=== PATIENT | female | born 2000 | race Two or more races ===

== ENCOUNTER 2021-10-31 15:43 | Outpatient (CLI) | payer OTHER | END 2021-10-31 17:17 | disposition home or self-care (01) | LOC: PRENATAL 15:43 | PROVIDERS: ATTEND Obstetrics & Gynecology Maternal & Fetal Medicine | DX: O35.0XX0 Maternal care for (suspected) central nervous system malformation in fetus, not applicable or unspecified (principal); O35.3XX0 Maternal care for (suspected) damage to fetus from viral disease in mother, not applicable or unspecified; O99.891 Other specified diseases and conditions complicating pregnancy; Z3A.22 22 weeks gestation of pregnancy; Z88.0 Allergy status to penicillin ==

== ENCOUNTER 2021-11-26 14:02 | Outpatient (CLI) | payer OTHER ==
[2021-11-26] MEDS ORDERED: PRENATAL CAPLE1 EAC1 (14:13)
[2021-11-26] MEDS ORDERED: PYRIDIUM200 MG PO (16:47)
[2021-11-26] MEDS ORDERED: MACROBID 100 M100 MG PO (16:47)
== END 2021-11-26 23:02 | disposition home or self-care (01) ==
LOC: OBS/DEL 14:02
PROVIDERS: ATTEND Obstetrics & Gynecology
DX: O23.42 Unspecified infection of urinary tract in pregnancy, second trimester (principal); N39.0 Urinary tract infection, site not specified; Z3A.25 25 weeks gestation of pregnancy; Z88.0 Allergy status to penicillin

== ENCOUNTER 2021-12-22 11:45 | Outpatient (CLI) | payer OTHER ==
[~2021-12-22 11:45] MED LIST: MACROBID 100 M100 MG PO; PRENATAL CAPLE1 EAC1; PYRIDIUM200 MG PO
== END 2021-12-22 12:00 | disposition home or self-care (01) ==
LOC: NST 11:45
PROVIDERS: ATTEND Obstetrics & Gynecology
DX: Z34.83 Encounter for supervision of other normal pregnancy, third trimester (principal)

== ENCOUNTER 2022-01-16 06:06 | Outpatient (CLI) | payer OTHER | END 2022-01-16 18:35 | disposition home or self-care (01) | LOC: OBS/DEL 06:06 | PROVIDERS: ATTEND Obstetrics & Gynecology | DX: O47.03 False labor before 37 completed weeks of gestation, third trimester (principal); Z3A.33 33 weeks gestation of pregnancy ==

== ENCOUNTER → 2022-02-23 | Outpatient (CLI) | payer OTHER | END | disposition home or self-care (01) | LOC: NST 22:03 | PROVIDERS: ATTEND Obstetrics & Gynecology | DX: Z34.83 Encounter for supervision of other normal pregnancy, third trimester (principal) ==

== ENCOUNTER 2022-02-28 07:22 | Inpatient (IN) | payer OTHER ==
[~2022-02-28] VITALS: Ht 162.6 cm; Wt 68.9 kg
== END 2022-03-02 14:30 | disposition home or self-care (01) | DRG 807 ==
LOC: OB/GYN 07:22 → LDR 07:22 → OB/GYN 22:08 → O/R 03-01 12:13 → OB/GYN 03-01 12:14
PROVIDERS: ADMIT Obstetrics & Gynecology; ATTEND Obstetrics & Gynecology
PROC: 10E0XZZ Delivery of Products of Conception, External Approach (ICD-10-PCS; principal; 2022-02-28)
PROC: 0UQG7ZZ Repair Vagina, Via Natural or Artificial Opening (ICD-10-PCS; 2022-02-28)
PROC: 4A1HXCZ Monitoring of Products of Conception, Cardiac Rate, External Approach (ICD-10-PCS; 2022-02-28)
DX: O71.4 Obstetric high vaginal laceration alone (principal); Z37.0 Single live birth; Z3A.39 39 weeks gestation of pregnancy; Z20.822 Contact with and (suspected) exposure to COVID-19

== ENCOUNTER 2023-02-04 19:16 | Emergency (ER) | payer OTHER ==
[~2023-02-04] VITALS: Ht 162.6 cm; Wt 56.2 kg
[2023-02-04] MEDS ORDERED: PEPCID40 MG PO (20:00)
[2023-02-05] MEDS ORDERED: PEPCID20 MG PO (00:03)
[2023-02-05] MEDS ORDERED: CARAFATE1 GM/10 ML PO (00:03)
[2023-02-05] MEDS ORDERED: NITROFURANTOIN100 MG PO (00:03)
== END 2023-02-05 00:13 | disposition home or self-care (01) ==
LOC: ER 19:16
PROVIDERS: General Practice
DX: K29.70 Gastritis, unspecified, without bleeding (principal); N39.0 Urinary tract infection, site not specified